=== PATIENT | male | born 1975 | race Caucasian/White ===

== ENCOUNTER 2018-12-31 21:49 | Emergency (ER) | payer MEDICAID, MEDICARE ==
[2018-12-31] MEDS: DIPHTH/TET/ACEL PERTUSS (ADULT) 0.5 ML VIAL IM* (23:00)
== END 2019-01-01 01:12 | disposition home or self-care (01) ==
LOC: E/R 01-01 01:12
DX: S50.01XA Contusion of right elbow, initial encounter (principal); V13.4XXA Pedal cycle driver injured in collision with car, pick-up truck or van in traffic accident, initial encounter; Z23 Encounter for immunization; Z87.891 Personal history of nicotine dependence
CPT/HCPCS: 90471; 90715; 99283-25

== ENCOUNTER 2019-01-01 19:00 | Inpatient (IN) | payer MEDICARE, MEDICAID, OTHER ==
[~2019-01-01 19:00] MED LIST: FLUMAZENIL 0.5 MG INJ
[2019-01-01] MEDS ORDERED: VERAPAMIL 5 MG INJ (19:01)
[2019-01-01] MEDS: ETOMIDATE 20 MG INJ IV (19:06)
[2019-01-01] MEDS: ROCURONIUM 50 MG INJ IV (19:06)
[2019-01-01 19:35] LABS: ADD MAN DIFF? NO
[2019-01-01 19:36] LABS: BASOPHIL # 0.1 10^3/ul (0.0-0.1); BASOPHILS % 0.4 % (0.0-2.0); EOSINOPHILS # 0.1 10^3/ul (0.0-0.5); EOSINOPHILS % 0.8 % (0.0-7.0); HEMATOCRIT 41.5 % (42.0-52.0); HEMOGLOBIN 13.8 g/dl (14.0-18.0); LYMPHOCYTES # 2.9 10^3/ul (0.8-2.9); LYMPHOCYTES % 18.8 % (15.0-51.0); MEAN CORPUSCULAR HEMOGLOBIN 27.5 pg (29.0-33.0); MEAN CORPUSCULAR HGB CONC 33.3 g/dl (32.0-37.0); MEAN CORPUSCULAR VOLUME 82.8 fl (82.0-101.0); MEAN PLATELET VOLUME 10.3 fl (7.4-10.4); MONOCYTE # 1.1 10^3/ul (0.3-0.9); MONOCYTES % 6.9 % (0.0-11.0); NEUTROPHIL # 11.1 10^3/ul (1.6-7.5); NEUTROPHILS % 72.6 % (39.0-77.0); PLATELET COUNT 404 10^3/UL (140-415); RED BLOOD COUNT 5.01 10^6/ul (4.70-6.10); RED CELL DISTRIBUTION WIDTH 13.2 % (11.5-14.5)
[2019-01-01 19:36] LABS: WHITE BLOOD COUNT 15.3 10^3/ul (4.8-10.8)
[2019-01-01 19:44] LABS: ALANINE AMINOTRANSFERASE 62 IU/L (13-69); ALBUMIN 4.2 g/dl (3.3-4.9); ALKALINE PHOSPHATASE 69 IU/L (42-121); ANION GAP 12 (5-13); ASPARTATE AMINO TRANSFERASE 83 IU/L (15-46); BILIRUBIN,INDIRECT 1.1 mg/dl (0-1.1); BILIRUBIN,TOTAL 1.1 mg/dl (0.2-1.3); BLOOD UREA NITROGEN 33 mg/dl (7-20); CARBON DIOXIDE 27 mmol/L (21-31); CHLORIDE 100 mmol/L (97-110); CREATININE 1.76 mg/dl (0.61-1.24); Estimated GFR 42 mL/min (>60); GLUCOSE 128 mg/dl (70-220); LIPASE 250 U/L (23-300); MAGNESIUM 1.8 mg/dl (1.7-2.5); PHOSPHORUS 2.4 mg/dl (2.5-4.9); POTASSIUM 3.6 mmol/L (3.5-5.1); SODIUM 139 mmol/L (135-144); TOTAL PROTEIN 7.7 g/dl (6.1-8.1)
[2019-01-01 19:47] LABS: ETHANOL < 10.0 mg/dl (0-0)
[2019-01-01] MEDS: ACETAMINOPHEN 650 MG SUPP PR (19:51)
[2019-01-01] MEDS: SODIUM CHLORIDE 0.9% 1L BAG IV* (19:51)
[2019-01-01 19:54] LABS: TROPONIN-I 0.015 ng/ml (0.000-0.120)
[2019-01-01 19:55] LABS: INR 1.03; PROTIME 13.6 Sec (11.9-14.9); PT RATIO 1.1
[2019-01-01 19:56] LABS: PARTIAL THROMBOPLASTIN TIME 26.9 Sec (23.0-35.0)
[2019-01-01] MEDS: DANTROLENE 20 MG INJ IV (20:29)
[2019-01-01] MEDS: MIDAZOLAM 1 MG/ML 2 ML INJ IV ×2 (20:29→20:38)
[2019-01-01] MEDS: FENTAnyl 50 MCG/ML VIAL IV ×2 (20:29→20:38)
[2019-01-01] MEDS: CEFTRIAXONE 2 GM/50 ML (PMX) 50 ML IVPB (20:29)
[2019-01-01] MEDS: MIDAZOLAM (DRIP) 50 mg/50 mL 50 ML IV (20:31)
[2019-01-01] MEDS: FENTAnyl (DRIP) 1000 mcg/100mL 100 ML IV (20:32)
[2019-01-01] MEDS: DANTROLENE SODIUM 250 MG VIAL IV (20:34)
[2019-01-01] MEDS ORDERED: ETOMIDATE 20 MG INJ (21:00)
[2019-01-01 21:06] LABS: ADD UMIC YES; UR ASCORBIC ACID NEGATIVE (NEGATIVE); UR BACTERIA FEW /HPF (NONE SEEN); UR BILIRUBIN (Dip) NEGATIVE (NEGATIVE); UR BLOOD (Dip) 2+ mg/dL (NEGATIVE); UR CLARITY SLIGHTLY CLOUDY (CLEAR); UR COLOR YELLOW (YELLOW); UR GLUCOSE (Dip) NEGATIVE (NEGATIVE); UR KETONES (Dip) NEGATIVE (NEGATIVE); UR LEUKOCYTE ESTERASE (Dip) NEGATIVE Leu/ul (NEGATIVE); UR MUCUS FEW /HPF (NONE SEEN); UR NITRITE (Dip) NEGATIVE (NEGATIVE); UR RBC 2 /HPF (0-5); UR SPECIFIC GRAVITY (Dip) 1.023 (1.003-1.030); UR TOTAL PROTEIN (Dip) 2+ mg/dl (NEGATIVE); UR UROBILINOGEN (Dip) NEGATIVE (NEGATIVE); UR WBC 3 /HPF (0-5)
[2019-01-01 21:17] LABS: BARBITURATES Negative (NEGATIVE); CANNABINOIDS Positive (NEGATIVE); COCAINE Negative (NEGATIVE); OPIATES Negative (NEGATIVE)
[2019-01-01 21:18] LABS: BENZODIAZEPINES Positive (NEGATIVE)
[2019-01-01] MEDS: CLINDAMYCIN 900 MG/D5W (PMX) 50 ML IVPB (21:18)
[2019-01-01] MEDS: VANCOMYCIN 1 GM (PMX) 250 ML IVPB (21:18)
[2019-01-01 21:19] LABS: AMPHETAMINE/METHAMPHETAMINE POSITIVE (NEGATIVE)
[2019-01-01 21:32] LABS: CSF RBC 0 /uL (0-0); CSF WBC 5 /cmm (0-10)
[2019-01-01 21:33] LABS: GLUCOSE,CSF 105 mg/dl (50-80)
[2019-01-01 21:33] LABS: TOTAL PROTEIN,CSF 37 mg/dl (12-60)
[2019-01-01 21:34] LABS: CSF RBC 0 /uL (0-0); CSF WBC 3 /cmm (0-10)
[2019-01-01 22:00] LABS: CSF COLOR COLORLESS
[2019-01-01 22:00] LABS: CSF CLARITY CLEAR; CSF#TUBE COUNT TUBE#1; CSF#TUBES REC'D 4
[2019-01-01] MEDS ORDERED: VANCOMYCIN IV PER PHARMACY XX (22:00)
[2019-01-01 22:05] LABS: CSF CLARITY CLEAR; CSF COLOR COLORLESS; CSF#TUBE COUNT TUBE#4; CSF#TUBES REC'D 4
[2019-01-01 22:08] LABS: AADO2 Arterial 572.7 mmHg (7.0-24.0); Allen Test ACCEPTAB; Arterial Base Excess -2.8 mmol/L (-3.0-3); Arterial Blood Gas Oxygen Sat 93.1 mmHG (95.0-98.0); Arterial COHb 0.2 % (0.0-3.0); Arterial Fraction of Oxyhgb 92.7 % (93.0-99.0); Arterial HCO3 25.5 mmol/L (22.0-26.0); Arterial MetHb 0.2 % (0.0-1.5); Arterial pCO2 59.7 mmhg (35-45); MODE VENT - AC; Site Right Radial
[2019-01-01 22:14] LABS: LACTIC ACID 1.4 mmol/L (0.5-2.0)
[2019-01-01] MEDS: HEPARIN 5,000 UNIT/1 ML VIAL SC (22:15)
[2019-01-01] MEDS: SOD CHLORIDE 0.9% 1,000 ML IV (22:15)
[2019-01-01 22:16] LABS: CREATINE KINASE 1189 IU/L (23-200)
[2019-01-01] MEDS: BROMOCRIPTINE 2.5 MG TAB NGT (22:31)
[2019-01-01 22:47] LABS: LITHIUM < 0.4 mmol/L (0.6-1.3)
[2019-01-02] MEDS: PIPER-TAZO 3.375 GM IV (PMX) 100 ML IVPB ×4 (00:01→20:32)
[2019-01-02 00:22] LABS: CK-MB 2.84 ng/ml (0.0-2.4)
[2019-01-02] MEDS ORDERED: DANTROLENE 20 MG INJ IV (00:30)
[2019-01-02 00:41] LABS: CK INDEX 0.3; CREATINE KINASE 1069 IU/L (23-200)
[2019-01-02] MEDS: VANCOMYCIN 1 GM in 250 ML IVPB (01:44)
[2019-01-02] MEDS: ACETAMINOPHEN 650MG/20.3ML CUP NGT ×2 (01:48→13:25)
[2019-01-02] MEDS: DANTROLENE SODIUM 250 MG VIAL IV ×2 (02:37→07:50)
[2019-01-02] MEDS: MIDAZOLAM (DRIP) 50 mg/50 mL 50 ML IV ×2 (03:50→09:03)
[2019-01-02] MEDS: HEPARIN 5,000 UNIT/1 ML VIAL SC ×3 (05:23→21:46)
[2019-01-02 05:27] LABS: ADD MAN DIFF? NO
[2019-01-02 05:46] LABS: HEMOGLOBIN A1C 5.5 % (0-5.9)
[2019-01-02 05:54] LABS: CREATINE KINASE 1024 IU/L (23-200)
[2019-01-02 05:56] LABS: ALANINE AMINOTRANSFERASE 60 IU/L (13-69); ALBUMIN 3.3 g/dl (3.3-4.9); ALBUMIN/GLOBULIN RATIO 1.06; ALKALINE PHOSPHATASE 52 IU/L (42-121); ANION GAP 9 (5-13); ASPARTATE AMINO TRANSFERASE 65 IU/L (15-46); BILIRUBIN,INDIRECT 0.6 mg/dl (0-1.1); BILIRUBIN,TOTAL 0.6 mg/dl (0.2-1.3); BLOOD UREA NITROGEN 30 mg/dl (7-20); CALCIUM 7.6 mg/dl (8.4-10.2); CARBON DIOXIDE 24 mmol/L (21-31); CHLORIDE 107 mmol/L (97-110); CHOL/HDL RATIO 2.4 RATIO; CHOLESTEROL 56 mg/dl (100-200); CREATININE 1.35 mg/dl (0.61-1.24); Estimated GFR 57 mL/min (>60); GLUCOSE 109 mg/dl (70-220); HDL CHOLESTEROL 23 mg/dl (27-67); LDL CHOLESTEROL,CALCULATED 24 mg/dl; POTASSIUM 3.7 mmol/L (3.5-5.1); SODIUM 140 mmol/L (135-144); TOTAL PROTEIN 6.4 g/dl (6.1-8.1); TRIGLYCERIDES 43 mg/dl (0-149)
[2019-01-02 06:01] LABS: BASOPHILS % 0.1 % (0.0-2.0); EOSINOPHILS % 0.1 % (0.0-7.0); HEMATOCRIT 41.2 % (42.0-52.0); HEMOGLOBIN 13.1 g/dl (14.0-18.0); LYMPHOCYTES # 0.9 10^3/ul (0.8-2.9); LYMPHOCYTES % 6.3 % (15.0-51.0); MEAN CORPUSCULAR HEMOGLOBIN 27.5 pg (29.0-33.0); MEAN CORPUSCULAR HGB CONC 31.8 g/dl (32.0-37.0); MEAN CORPUSCULAR VOLUME 86.4 fl (82.0-101.0); MEAN PLATELET VOLUME 10.3 fl (7.4-10.4); MONOCYTE # 0.8 10^3/ul (0.3-0.9); MONOCYTES % 5.8 % (0.0-11.0); NEUTROPHIL # 11.7 10^3/ul (1.6-7.5); PLATELET COUNT 197 10^3/UL (140-415); RED BLOOD COUNT 4.77 10^6/ul (4.70-6.10); RED CELL DISTRIBUTION WIDTH 13.6 % (11.5-14.5)
[2019-01-02 06:01] LABS: WHITE BLOOD COUNT 13.5 10^3/ul (4.8-10.8)
[2019-01-02 06:04] LABS: CK INDEX 0.2; CK-MB 1.97 ng/ml (0.0-2.4); TROPONIN-I 0.065 ng/ml (0.000-0.120)
[2019-01-02] MEDS: BROMOCRIPTINE 2.5 MG TAB PO ×3 (06:21→19:02)
[2019-01-02 06:24] LABS: THYROID STIMULATING HORMONE 0.788 MIU/L (0.465-4.680)
[2019-01-02] MEDS: SOD CHLORIDE 0.9% 1,000 ML IV ×2 (07:40→18:56)
[2019-01-02 08:42] LABS: AADO2 Arterial 550.1 mmHg (7.0-24.0); Allen Test ACCEPTAB; Arterial Blood Gas Oxygen Sat 98.1 mmHG (95.0-98.0); Arterial COHb 0.3 % (0.0-3.0); Arterial Fraction of Oxyhgb 97.5 % (93.0-99.0); Arterial HCO3 21.1 mmol/L (22.0-26.0); Arterial MetHb 0.3 % (0.0-1.5); Arterial pCO2 38.7 mmhg (35-45); MODE VENT - AC; Site Right Radial
[2019-01-02 11:26] LABS: CREATINE KINASE 879 IU/L (23-200)
[2019-01-02 11:39] LABS: CK INDEX 0.2; CK-MB 1.95 ng/ml (0.0-2.4)
[2019-01-02 11:53] LABS: TROPONIN-I 0.126 ng/ml (0.000-0.120)
[2019-01-02] MEDS: FENTAnyl (DRIP) 1000 mcg/100mL 100 ML IV (13:12)
[2019-01-02 14:25] LABS: HIV 1&2 ANTIBODY NEGATIVE (NEGATIVE)
[2019-01-02 14:27] LABS: PROCALCITONIN 18.13 ng/mL (0.00-0.10)
[2019-01-02] MEDS ORDERED: NORepinephrine 8MG/250 ML (PMX 250 ML (15:34)
[2019-01-02] MEDS ORDERED: NORepinephrine 8MG/250 ML (PMX 250 ML IV (19:00)
[2019-01-02] MEDS: VANCOMYCIN HCL 1.25 GM in SOD CHLORIDE 0.9% 250 ML IVPB (19:00)
[2019-01-02 21:33] LABS: CREATINE KINASE 676 IU/L (23-200)
[2019-01-02 21:43] LABS: CK INDEX 1.4
[2019-01-02 21:44] LABS: CK-MB 9.54 ng/ml (0.0-2.4)
[2019-01-03] MEDS ORDERED: ASPIRIN 600 MG SUPP PR
[2019-01-03] MEDS: PIPER-TAZO 3.375 GM IV (PMX) 100 ML IVPB ×4 (00:25→20:42)
[2019-01-03] MEDS: BROMOCRIPTINE 2.5 MG TAB PO (00:25)
[2019-01-03] MEDS: HEPARIN 1000 UNITS/ML 10 ML INJ IV (00:25)
[2019-01-03] MEDS: HEPARIN 25000 UNITS/250 ML 250 ML IV (00:32)
[2019-01-03] MEDS: ASPIRIN 325 MG TAB NGT (00:57)
[2019-01-03] MEDS: ALBUMIN HUMAN 25% 100 ML IV ×2 (00:59→01:28)
[2019-01-03 01:12] LABS: ADD MAN DIFF? NO
[2019-01-03 01:17] LABS: ABNORMAL IP MESSAGE 1; BASOPHILS % 0.2 % (0.0-2.0); HEMATOCRIT 36.8 % (42.0-52.0); HEMOGLOBIN 11.3 g/dl (14.0-18.0); LYMPHOCYTES % 8.4 % (15.0-51.0); MEAN CORPUSCULAR HEMOGLOBIN 27.5 pg (29.0-33.0); MEAN CORPUSCULAR HGB CONC 30.7 g/dl (32.0-37.0); MEAN CORPUSCULAR VOLUME 89.5 fl (82.0-101.0); MEAN PLATELET VOLUME 11.8 fl (7.4-10.4); MONOCYTE # 0.5 10^3/ul (0.3-0.9); MONOCYTES % 3.8 % (0.0-11.0); NEUTROPHIL # 10.7 10^3/ul (1.6-7.5); NEUTROPHILS % 87.3 % (39.0-77.0); PLATELET COUNT 89 10^3/UL (140-415); POSITIVE DIFF @See below; RED BLOOD COUNT 4.11 10^6/ul (4.70-6.10); RED CELL DISTRIBUTION WIDTH 13.8 % (11.5-14.5)
[2019-01-03 01:17] LABS: WHITE BLOOD COUNT 12.2 10^3/ul (4.8-10.8)
[2019-01-03 01:31] LABS: CREATINE KINASE 678 IU/L (23-200)
[2019-01-03 01:35] LABS: INR 1.56; PROTIME 18.8 Sec (11.9-14.9); PT RATIO 1.5
[2019-01-03] MEDS: MIDAZOLAM (DRIP) 50 mg/50 mL 50 ML IV ×4 (01:37→21:18)
[2019-01-03 01:45] LABS: CK INDEX 2.4
[2019-01-03 01:50] LABS: PARTIAL THROMBOPLASTIN TIME 96.6 Sec (23.0-35.0)
[2019-01-03] MEDS: NORepinephrine 8MG/250 ML (PMX 250 ML IV ×2 (02:01→14:00)
[2019-01-03] MEDS: VANCOMYCIN HCL 1.25 GM in SOD CHLORIDE 0.9% 250 ML IVPB ×2 (02:06→16:13)
[2019-01-03] MEDS: SOD CHLORIDE 0.9% 1,000 ML IV ×3 (03:29→23:56)
[2019-01-03] MEDS ORDERED: SOD CHLORIDE 0.9% 1,000 ML IV (03:30)
[2019-01-03] MEDS ORDERED: HEPARIN 1000 UNITS/ML 10 ML INJ IV (05:30)
[2019-01-03 07:49] LABS: AADO2 Arterial 93.1 mmHg (7.0-24.0); Allen Test ACCEPTAB; Arterial Base Excess -3.3 mmol/L (-3.0-3); Arterial Blood Gas Oxygen Sat 95.3 mmHG (95.0-98.0); Arterial COHb 0.3 % (0.0-3.0); Arterial Fraction of Oxyhgb 94.9 % (93.0-99.0); Arterial HCO3 20.7 mmol/L (22.0-26.0); Arterial MetHb 0.1 % (0.0-1.5); Arterial pCO2 34.3 mmhg (35-45); MODE VENT - AC; Site Right Radial; Temperature 37.3 C
[2019-01-03 08:13] LABS: ADD MAN DIFF? NO
[2019-01-03 08:21] LABS: WHITE BLOOD COUNT 14.5 10^3/ul (4.8-10.8)
[2019-01-03 08:21] LABS: BASOPHILS % 0.1 % (0.0-2.0); HEMATOCRIT 34.8 % (42.0-52.0); HEMOGLOBIN 11.2 g/dl (14.0-18.0); LYMPHOCYTES # 1.1 10^3/ul (0.8-2.9); LYMPHOCYTES % 7.9 % (15.0-51.0); MEAN CORPUSCULAR HEMOGLOBIN 27.7 pg (29.0-33.0); MEAN CORPUSCULAR HGB CONC 32.2 g/dl (32.0-37.0); MEAN CORPUSCULAR VOLUME 86.1 fl (82.0-101.0); MEAN PLATELET VOLUME 11.9 fl (7.4-10.4); MONOCYTE # 0.6 10^3/ul (0.3-0.9); MONOCYTES % 3.9 % (0.0-11.0); NEUTROPHIL # 12.7 10^3/ul (1.6-7.5); NEUTROPHILS % 87.8 % (39.0-77.0); PLATELET COUNT 100 10^3/UL (140-415); RED BLOOD COUNT 4.04 10^6/ul (4.70-6.10); RED CELL DISTRIBUTION WIDTH 14.1 % (11.5-14.5)
[2019-01-03 08:35] LABS: ALANINE AMINOTRANSFERASE 89 IU/L (13-69); ALBUMIN 3.1 g/dl (3.3-4.9); ALBUMIN/GLOBULIN RATIO 1.06; ALKALINE PHOSPHATASE 51 IU/L (42-121); ANION GAP 10 (5-13); ASPARTATE AMINO TRANSFERASE 71 IU/L (15-46); BILIRUBIN,INDIRECT 0.7 mg/dl (0-1.1); BLOOD UREA NITROGEN 31 mg/dl (7-20); CALCIUM 7.9 mg/dl (8.4-10.2); CARBON DIOXIDE 21 mmol/L (21-31); CHLORIDE 111 mmol/L (97-110); CREATININE 1.01 mg/dl (0.61-1.24); Estimated GFR > 60 mL/min (>60); GLUCOSE 133 mg/dl (70-220); POTASSIUM 3.8 mmol/L (3.5-5.1); SODIUM 142 mmol/L (135-144)
[2019-01-03 08:38] LABS: PARTIAL THROMBOPLASTIN TIME 39.6 Sec (23.0-35.0)
[2019-01-03] MEDS ORDERED: ASPIRIN 325 MG TAB NGT (09:00)
[2019-01-03 11:47] LABS: PARTIAL THROMBOPLASTIN TIME 126.1 Sec (23.0-35.0)
[2019-01-03] MEDS: LIDOCAINE 1% (MPF) 5 ML VIAL SC (12:25)
[2019-01-03] MEDS ORDERED: POTASSIUM CHLORIDE (SR) 20 MEQ TAB PO (13:26)
[2019-01-03 13:40] LABS: ADD MAN DIFF? NO
[2019-01-03 13:41] LABS: WHITE BLOOD COUNT 14.7 10^3/ul (4.8-10.8)
[2019-01-03 13:41] LABS: ABNORMAL IP MESSAGE 1; BASOPHILS % 0.1 % (0.0-2.0); HEMATOCRIT 34.5 % (42.0-52.0); LYMPHOCYTES # 0.9 10^3/ul (0.8-2.9); LYMPHOCYTES % 5.9 % (15.0-51.0); MEAN CORPUSCULAR HEMOGLOBIN 27.7 pg (29.0-33.0); MEAN CORPUSCULAR HGB CONC 31.9 g/dl (32.0-37.0); MEAN CORPUSCULAR VOLUME 86.9 fl (82.0-101.0); MEAN PLATELET VOLUME 10.9 fl (7.4-10.4); MONOCYTE # 0.7 10^3/ul (0.3-0.9); MONOCYTES % 4.4 % (0.0-11.0); NEUTROPHIL # 13.1 10^3/ul (1.6-7.5); NEUTROPHILS % 89.2 % (39.0-77.0); PLATELET COUNT 94 10^3/UL (140-415); POSITIVE DIFF @See below; RED BLOOD COUNT 3.97 10^6/ul (4.70-6.10); RED CELL DISTRIBUTION WIDTH 14.2 % (11.5-14.5)
[2019-01-03 14:13] LABS: VANCOMYCIN,TROUGH 10.2 ug/ml (10.0-20.0)
[2019-01-03] MEDS: FENTAnyl (DRIP) 1000 mcg/100mL 100 ML IV (16:41)
[2019-01-03 19:17] LABS: PARTIAL THROMBOPLASTIN TIME 31.1 Sec (23.0-35.0)
[2019-01-04] MEDS: PIPER-TAZO 3.375 GM IV (PMX) 100 ML IVPB ×3 (00:40→12:42)
[2019-01-04] MEDS: VANCOMYCIN HCL 1.5 GM in SOD CHLORIDE 0.9% 250 ML IVPB ×2 (01:23→13:56)
[2019-01-04] MEDS: MIDAZOLAM (DRIP) 50 mg/50 mL 50 ML IV ×2 (03:15→21:44)
[2019-01-04 03:17] LABS: TROPONIN-I 0.884 ng/ml (0.000-0.120)
[2019-01-04 05:28] LABS: ADD MAN DIFF? NO
[2019-01-04 05:31] LABS: WHITE BLOOD COUNT 13.4 10^3/ul (4.8-10.8)
[2019-01-04 05:31] LABS: ABNORMAL IP MESSAGE 1; BASOPHILS % 0.1 % (0.0-2.0); EOSINOPHILS % 0.1 % (0.0-7.0); HEMATOCRIT 33.7 % (42.0-52.0); HEMOGLOBIN 10.7 g/dl (14.0-18.0); LYMPHOCYTES # 0.9 10^3/ul (0.8-2.9); LYMPHOCYTES % 6.6 % (15.0-51.0); MEAN CORPUSCULAR HEMOGLOBIN 27.8 pg (29.0-33.0); MEAN CORPUSCULAR HGB CONC 31.8 g/dl (32.0-37.0); MEAN CORPUSCULAR VOLUME 87.5 fl (82.0-101.0); MEAN PLATELET VOLUME 11.6 fl (7.4-10.4); MONOCYTE # 0.6 10^3/ul (0.3-0.9); MONOCYTES % 4.3 % (0.0-11.0); NEUTROPHIL # 11.8 10^3/ul (1.6-7.5); NEUTROPHILS % 88.4 % (39.0-77.0); PLATELET COUNT 93 10^3/UL (140-415); POSITIVE DIFF @See below; RED BLOOD COUNT 3.85 10^6/ul (4.70-6.10); RED CELL DISTRIBUTION WIDTH 14.4 % (11.5-14.5)
[2019-01-04 06:01] LABS: CREATINE KINASE 282 IU/L (23-200)
[2019-01-04 06:04] LABS: ALANINE AMINOTRANSFERASE 103 IU/L (13-69); ALBUMIN 2.8 g/dl (3.3-4.9); ALKALINE PHOSPHATASE 61 IU/L (42-121); ANION GAP 3 (5-13); ASPARTATE AMINO TRANSFERASE 55 IU/L (15-46); BILIRUBIN,INDIRECT 0.6 mg/dl (0-1.1); BILIRUBIN,TOTAL 0.6 mg/dl (0.2-1.3); BLOOD UREA NITROGEN 26 mg/dl (7-20); CALCIUM 7.9 mg/dl (8.4-10.2); CARBON DIOXIDE 26 mmol/L (21-31); CHLORIDE 114 mmol/L (97-110); CREATININE 0.72 mg/dl (0.61-1.24); Estimated GFR > 60 mL/min (>60); GLUCOSE 127 mg/dl (70-220); SODIUM 143 mmol/L (135-144); TOTAL PROTEIN 5.6 g/dl (6.1-8.1)
[2019-01-04 06:11] LABS: CK INDEX 2.1
[2019-01-04] MEDS: FENTAnyl (DRIP) 1000 mcg/100mL 100 ML IV (06:14)
[2019-01-04 06:40] LABS: CK-MB 5.79 ng/ml (0.0-2.4); TROPONIN-I 0.741 ng/ml (0.000-0.120)
[2019-01-04 07:36] LABS: AADO2 Arterial 99.7 mmHg (7.0-24.0); Allen Test ACCEPTAB; Arterial Base Excess -1.1 mmol/L (-3.0-3); Arterial Blood Gas Oxygen Sat 93.2 mmHG (95.0-98.0); Arterial COHb 0.3 % (0.0-3.0); Arterial Fraction of Oxyhgb 92.9 % (93.0-99.0); Arterial HCO3 23.1 mmol/L (22.0-26.0); Arterial MetHb 0 % (0.0-1.5); Arterial pCO2 37.7 mmhg (35-45); MODE VENT - AC; Site Right Radial; Temperature 37.6 C
[2019-01-04] MEDS: MUPIROCIN 2% 22 GM OINT TOP ×2 (08:31→20:31)
[2019-01-04] MEDS: ASPIRIN 81 MG TAB NGT (08:31)
[2019-01-04] MEDS: ACETAMINOPHEN 650MG/20.3ML CUP NGT ×2 (08:31→21:54)
[2019-01-04] MEDS: SOD CHLORIDE 0.9% 1,000 ML IV (09:04)
[2019-01-04 10:11] LABS: PHOSPHORUS 1.8 mg/dl (2.5-4.9)
[2019-01-04 10:11] LABS: MAGNESIUM 2.8 mg/dl (1.7-2.5)
[2019-01-04] MEDS: CEFTRIAXONE 1 GM/50 ML (PMX) 50 ML IVPB (14:17)
[2019-01-04] MEDS: metroNIDAZOLE 500 MG/NS (PMX) 100 ML IVPB ×2 (14:25→21:54)
[2019-01-05] MEDS: FENTAnyl (DRIP) 1000 mcg/100mL 100 ML IV ×3 (00:58→23:22)
[2019-01-05] MEDS: VANCOMYCIN HCL 1.5 GM in SOD CHLORIDE 0.9% 250 ML IVPB ×2 (01:11→13:24)
[2019-01-05 05:19] LABS: WHITE BLOOD COUNT 12.3 10^3/ul (4.8-10.8)
[2019-01-05 05:19] LABS: ADD MAN DIFF? NO; BASOPHILS % 0.2 % (0.0-2.0); EOSINOPHILS # 0.1 10^3/ul (0.0-0.5); EOSINOPHILS % 0.5 % (0.0-7.0); HEMATOCRIT 33.6 % (42.0-52.0); HEMOGLOBIN 10.5 g/dl (14.0-18.0); LYMPHOCYTES % 8.3 % (15.0-51.0); MEAN CORPUSCULAR HEMOGLOBIN 27.5 pg (29.0-33.0); MEAN CORPUSCULAR HGB CONC 31.3 g/dl (32.0-37.0); MEAN PLATELET VOLUME 12.3 fl (7.4-10.4); MONOCYTE # 0.8 10^3/ul (0.3-0.9); MONOCYTES % 6.3 % (0.0-11.0); NEUTROPHIL # 10.3 10^3/ul (1.6-7.5); PLATELET COUNT 138 10^3/UL (140-415); RED BLOOD COUNT 3.82 10^6/ul (4.70-6.10); RED CELL DISTRIBUTION WIDTH 14.6 % (11.5-14.5)
[2019-01-05] MEDS: metroNIDAZOLE 500 MG/NS (PMX) 100 ML IVPB ×2 (05:38→21:30)
[2019-01-05 05:58] LABS: MAGNESIUM 2.4 mg/dl (1.7-2.5)
[2019-01-05 05:58] LABS: PHOSPHORUS 2.7 mg/dl (2.5-4.9)
[2019-01-05 06:08] LABS: ALANINE AMINOTRANSFERASE 125 IU/L (13-69); ALBUMIN 2.8 g/dl (3.3-4.9); ALBUMIN/GLOBULIN RATIO 0.87; ALKALINE PHOSPHATASE 67 IU/L (42-121); ANION GAP 4 (5-13); ASPARTATE AMINO TRANSFERASE 52 IU/L (15-46); BILIRUBIN,INDIRECT 0.5 mg/dl (0-1.1); BILIRUBIN,TOTAL 0.5 mg/dl (0.2-1.3); BLOOD UREA NITROGEN 18 mg/dl (7-20); CALCIUM 7.9 mg/dl (8.4-10.2); CARBON DIOXIDE 28 mmol/L (21-31); CHLORIDE 115 mmol/L (97-110); Estimated GFR > 60 mL/min (>60); GLUCOSE 102 mg/dl (70-220); POTASSIUM 4.1 mmol/L (3.5-5.1); SODIUM 147 mmol/L (135-144)
[2019-01-05] MEDS: ASPIRIN 81 MG TAB NGT (09:09)
[2019-01-05] MEDS: MUPIROCIN 2% 22 GM OINT TOP ×2 (09:09→20:57)
[2019-01-05] MEDS: PROPOFOL 100 ML IV ×3 (09:56→21:30)
[2019-01-05] MEDS: MEROPENEM 1 GM/50ML(PMX) 50 ML IVPB ×2 (10:00→13:24)
[2019-01-05] MEDS: ACETAMINOPHEN 650MG/20.3ML CUP NGT ×2 (11:11→17:24)
[2019-01-05 12:49] LABS: VANCOMYCIN,TROUGH 6.5 ug/ml (10.0-20.0)
[2019-01-05] MEDS ORDERED: CEFTRIAXONE 1 GM/50 ML (PMX) 50 ML IVPB (14:00)
[2019-01-05] MEDS: CEFEPIME 2GM/50 ML (PMX) 50 ML IVPB (20:57)
[2019-01-05] MEDS: VANCOMYCIN HCL 1.25 GM in SOD CHLORIDE 0.9% 250 ML IVPB (21:30)
[2019-01-06] MEDS: ACETAMINOPHEN 650MG/20.3ML CUP NGT ×5 (01:18→23:55)
[2019-01-06] MEDS: PROPOFOL 100 ML IV ×3 (02:21→11:01)
[2019-01-06 05:09] LABS: ADD MAN DIFF? NO
[2019-01-06 05:16] LABS: BASOPHILS % 0.3 % (0.0-2.0); EOSINOPHILS # 0.3 10^3/ul (0.0-0.5); EOSINOPHILS % 1.8 % (0.0-7.0); HEMATOCRIT 38.3 % (42.0-52.0); LYMPHOCYTES % 7.2 % (15.0-51.0); MEAN CORPUSCULAR HEMOGLOBIN 27.6 pg (29.0-33.0); MEAN CORPUSCULAR HGB CONC 31.3 g/dl (32.0-37.0); MEAN PLATELET VOLUME 11.8 fl (7.4-10.4); MONOCYTE # 1.1 10^3/ul (0.3-0.9); MONOCYTES % 7.9 % (0.0-11.0); NEUTROPHIL # 11.4 10^3/ul (1.6-7.5); PLATELET COUNT 204 10^3/UL (140-415); RED BLOOD COUNT 4.35 10^6/ul (4.70-6.10); RED CELL DISTRIBUTION WIDTH 14.4 % (11.5-14.5)
[2019-01-06 05:16] LABS: WHITE BLOOD COUNT 13.9 10^3/ul (4.8-10.8)
[2019-01-06 05:36] LABS: PHOSPHORUS 3.9 mg/dl (2.5-4.9)
[2019-01-06 05:36] LABS: MAGNESIUM 2.1 mg/dl (1.7-2.5)
[2019-01-06] MEDS: VANCOMYCIN HCL 1.25 GM in SOD CHLORIDE 0.9% 250 ML IVPB ×2 (05:37→16:58)
[2019-01-06] MEDS: metroNIDAZOLE 500 MG/NS (PMX) 100 ML IVPB ×3 (05:37→22:08)
[2019-01-06 05:39] LABS: ANION GAP 3 (5-13); BLOOD UREA NITROGEN 16 mg/dl (7-20); CALCIUM 8.5 mg/dl (8.4-10.2); CARBON DIOXIDE 31 mmol/L (21-31); CHLORIDE 112 mmol/L (97-110); CREATININE 0.43 mg/dl (0.61-1.24); Estimated GFR > 60 mL/min (>60); GLUCOSE 104 mg/dl (70-220); SODIUM 146 mmol/L (135-144)
[2019-01-06] MEDS: FENTAnyl (DRIP) 1000 mcg/100mL 100 ML IV (09:12)
[2019-01-06] MEDS: CEFEPIME 2GM/50 ML (PMX) 50 ML IVPB ×2 (09:22→20:59)
[2019-01-06] MEDS: MUPIROCIN 2% 22 GM OINT TOP ×2 (09:23→21:03)
[2019-01-06] MEDS: METOPROLOL 25 MG TAB PO ×2 (09:23→21:01)
[2019-01-06 14:09] LABS: AADO2 Arterial 91.9 mmHg (7.0-24.0); Allen Test ACCEPTAB; Arterial Base Excess 2.6 mmol/L (-3.0-3); Arterial Blood Gas Oxygen Sat 89.8 mmHG (95.0-98.0); Arterial COHb 0.2 % (0.0-3.0); Arterial Fraction of Oxyhgb 89.6 % (93.0-99.0); Arterial HCO3 29.1 mmol/L (22.0-26.0); Arterial MetHb 0 % (0.0-1.5); Arterial pCO2 53.2 mmhg (35-45); Blood Gas PS 10; MODE VENT - CPAP; Site Right Radial
[2019-01-06] MEDS: ASPIRIN 81 MG TAB NGT (14:51)
[2019-01-06 15:40] LABS: VANCOMYCIN,TROUGH 9.8 ug/ml (10.0-20.0)
[2019-01-06] MEDS: HALOPERIDOL 5 MG INJ IV (16:54)
[2019-01-06] MEDS ORDERED: hydrALAzine 20 MG INJ IV (19:30)
[2019-01-06 21:56] LABS: Allen Test ACCEPTAB; Arterial Base Excess 4.4 mmol/L (-3.0-3); Arterial Blood Gas Oxygen Sat 94.5 mmHG (95.0-98.0); Arterial COHb 0.2 % (0.0-3.0); Arterial Fraction of Oxyhgb 94.1 % (93.0-99.0); Arterial HCO3 29.1 mmol/L (22.0-26.0); Arterial MetHb 0.2 % (0.0-1.5); Arterial pCO2 43.6 mmhg (35-45); MODE NASAL CANNULA; Site Right Radial
[2019-01-07] MEDS: VANCOMYCIN HCL 1.5 GM in SOD CHLORIDE 0.9% 250 ML IVPB ×3 (00:55→17:08)
[2019-01-07] MEDS: metroNIDAZOLE 500 MG/NS (PMX) 100 ML IVPB ×3 (05:45→21:12)
[2019-01-07] MEDS: ACETAMINOPHEN 650MG/20.3ML CUP NGT ×5 (05:50→18:00)
[2019-01-07] MEDS: CEFEPIME 2GM/50 ML (PMX) 50 ML IVPB ×2 (11:30→21:00)
[2019-01-07] MEDS: METOPROLOL 25 MG TAB PO (11:31)
[2019-01-07] MEDS: ASPIRIN 81 MG TAB NGT (11:31)
[2019-01-07] MEDS: MUPIROCIN 2% 22 GM OINT TOP ×2 (11:32→21:14)
[2019-01-07] MEDS: FUROSEMIDE 20 MG INJ IV ×2 (11:42→17:08)
[2019-01-07] MEDS: METOPROLOL (XL) 25 MG TAB PO (21:12)
[2019-01-07] MEDS: HYDROmorphONE 1 MG/ML SYG IV (23:17)
[2019-01-08 01:30] LABS: VANCOMYCIN,TROUGH 9.5 ug/ml (10.0-20.0)
[2019-01-08] MEDS: VANCOMYCIN HCL 1.5 GM in SOD CHLORIDE 0.9% 250 ML IVPB (02:09)
[2019-01-08] MEDS: metroNIDAZOLE 500 MG/NS (PMX) 100 ML IVPB ×3 (06:14→22:30)
[2019-01-08] MEDS: FUROSEMIDE 20 MG INJ IV ×2 (06:14→18:23)
[2019-01-08] MEDS: ACETAMINOPHEN 650MG/20.3ML CUP NGT ×3 (06:17→18:23)
[2019-01-08] MEDS: ASPIRIN 81 MG TAB NGT (08:29)
[2019-01-08] MEDS: VANCOMYCIN HCL 1.75 GM in SOD CHLORIDE 0.9% 500 ML IVPB ×2 (08:29→17:07)
[2019-01-08] MEDS: CEFEPIME 2GM/50 ML (PMX) 50 ML IVPB ×2 (08:29→20:46)
[2019-01-08] MEDS: METOPROLOL (XL) 25 MG TAB PO ×2 (08:30→20:48)
[2019-01-08] MEDS: MUPIROCIN 2% 22 GM OINT TOP ×2 (08:30→20:49)
[2019-01-08 15:35] LABS: ADD MAN DIFF? NO
[2019-01-08 15:37] LABS: BASOPHILS % 0.3 % (0.0-2.0); EOSINOPHILS # 0.2 10^3/ul (0.0-0.5); EOSINOPHILS % 2.1 % (0.0-7.0); HEMATOCRIT 35.6 % (42.0-52.0); HEMOGLOBIN 11.7 g/dl (14.0-18.0); LYMPHOCYTES # 0.9 10^3/ul (0.8-2.9); LYMPHOCYTES % 9.9 % (15.0-51.0); MEAN CORPUSCULAR HEMOGLOBIN 27.3 pg (29.0-33.0); MEAN CORPUSCULAR HGB CONC 32.9 g/dl (32.0-37.0); MEAN PLATELET VOLUME 10.4 fl (7.4-10.4); MONOCYTE # 0.8 10^3/ul (0.3-0.9); MONOCYTES % 8.8 % (0.0-11.0); NEUTROPHIL # 7.2 10^3/ul (1.6-7.5); PLATELET COUNT 359 10^3/UL (140-415); RED BLOOD COUNT 4.29 10^6/ul (4.70-6.10); RED CELL DISTRIBUTION WIDTH 13.2 % (11.5-14.5)
[2019-01-08 15:37] LABS: WHITE BLOOD COUNT 9.5 10^3/ul (4.8-10.8)
[2019-01-08 16:38] LABS: ANION GAP 5 (5-13); BLOOD UREA NITROGEN 17 mg/dl (7-20); CALCIUM 8.5 mg/dl (8.4-10.2); CARBON DIOXIDE 33 mmol/L (21-31); CHLORIDE 100 mmol/L (97-110); CREATININE 0.61 mg/dl (0.61-1.24); Estimated GFR > 60 mL/min (>60); GLUCOSE 127 mg/dl (70-220); MAGNESIUM 1.9 mg/dl (1.7-2.5); PHOSPHORUS 3.1 mg/dl (2.5-4.9); POTASSIUM 3.3 mmol/L (3.5-5.1); SODIUM 138 mmol/L (135-144)
[2019-01-08] MEDS: HYDROmorphONE 1 MG/ML SYG IV (20:49)
[2019-01-08] MEDS: ALBUTEROL/IPRATROPIUM (NEB) 3 ML AMP HHN (21:28)
[2019-01-08] MEDS: ZOLPIDEM 5 MG TAB PO (22:30)
[2019-01-09] MEDS: ACETAMINOPHEN 650MG/20.3ML CUP NGT ×5 (00:39→16:40)
[2019-01-09] MEDS: VANCOMYCIN HCL 1.75 GM in SOD CHLORIDE 0.9% 500 ML IVPB ×3 (00:40→16:05)
[2019-01-09] MEDS: metroNIDAZOLE 500 MG/NS (PMX) 100 ML IVPB ×3 (06:14→21:46)
[2019-01-09] MEDS: FUROSEMIDE 20 MG INJ IV ×2 (06:15→17:12)
[2019-01-09] MEDS: HYDROmorphONE 1 MG/ML SYG IV ×2 (06:30→20:11)
[2019-01-09 08:42] LABS: VANCOMYCIN,TROUGH 15.2 ug/ml (10.0-20.0)
[2019-01-09 08:52] LABS: PROCALCITONIN 0.17 ng/mL (0.00-0.10)
[2019-01-09] MEDS: CEFEPIME 2GM/50 ML (PMX) 50 ML IVPB ×2 (08:52→20:10)
[2019-01-09] MEDS: ASPIRIN 81 MG TAB NGT (08:52)
[2019-01-09] MEDS: METOPROLOL (XL) 25 MG TAB PO ×2 (08:53→20:10)
[2019-01-09] MEDS: POTASSIUM CHLORIDE (SR) 20 MEQ TAB PO (10:34)
[2019-01-09] MEDS: GUAIFENESIN/DM 5ML CUP PO (21:46)
[2019-01-10] MEDS: VANCOMYCIN HCL 1.75 GM in SOD CHLORIDE 0.9% 500 ML IVPB ×2 (00:37→08:29)
[2019-01-10] MEDS: HYDROmorphONE 1 MG/ML SYG IV ×2 (00:45→06:47)
[2019-01-10] MEDS: metroNIDAZOLE 500 MG/NS (PMX) 100 ML IVPB ×2 (05:51→14:37)
[2019-01-10] MEDS: ACETAMINOPHEN 650MG/20.3ML CUP NGT ×3 (05:52→11:39)
[2019-01-10] MEDS: FUROSEMIDE 20 MG INJ IV (05:52)
[2019-01-10] MEDS: CEFEPIME 2GM/50 ML (PMX) 50 ML IVPB (08:29)
[2019-01-10] MEDS: ASPIRIN 81 MG TAB NGT (08:30)
[2019-01-10] MEDS: METOPROLOL (XL) 25 MG TAB PO (08:30)
[2019-01-10 08:31] LABS: CREATININE 0.57 mg/dl (0.61-1.24)
[2019-01-10 08:31] LABS: BLOOD UREA NITROGEN 11 mg/dl (7-20)
[2019-01-10] MEDS ORDERED: HYDROmorphONE 0.5 MG/0.5 ML SYG IV (09:00)
== END 2019-01-10 16:00 | disposition home or self-care (01) | DRG 870 ==
LOC: E/R 19:00 → 6WM 01-07 14:25 → ICU 21:15
PROC: 0BH17EZ Insertion of Endotracheal Airway into Trachea, Via Natural or Artificial Opening (ICD-10-PCS; principal; 2019-01-01)
PROC: 5A1955Z Respiratory Ventilation, Greater than 96 Consecutive Hours (ICD-10-PCS; 2019-01-01)
PROC: 009U3ZX Drainage of Spinal Canal, Percutaneous Approach, Diagnostic (ICD-10-PCS; 2019-01-01)
PROC: 02H633Z Insertion of Infusion Device into Right Atrium, Percutaneous Approach (ICD-10-PCS; 2019-01-03)
DX: A41.9 Sepsis, unspecified organism (principal); J69.0 Pneumonitis due to inhalation of food and vomit; J96.01 Acute respiratory failure with hypoxia; J96.02 Acute respiratory failure with hypercapnia; G21.0 Malignant neuroleptic syndrome; R65.21 Severe sepsis with septic shock; I21.A1 Myocardial infarction type 2; G92 Toxic encephalopathy; N17.9 Acute kidney failure, unspecified; M62.82 Rhabdomyolysis; E87.0 Hyperosmolality and hypernatremia; D69.6 Thrombocytopenia, unspecified; E66.01 Morbid (severe) obesity due to excess calories; F31.9 Bipolar disorder, unspecified; I11.0 Hypertensive heart disease with heart failure; I50.9 Heart failure, unspecified; J06.9 Acute upper respiratory infection, unspecified; B96.5 Pseudomonas (aeruginosa) (mallei) (pseudomallei) as the cause of diseases classified elsewhere; B95.62 Methicillin resistant Staphylococcus aureus infection as the cause of diseases classified elsewhere; T43.621A Poisoning by amphetamines, accidental (unintentional), initial encounter; T42.4X1A Poisoning by benzodiazepines, accidental (unintentional), initial encounter; T40.7X1A Poisoning by cannabis (derivatives), accidental (unintentional), initial encounter; Z68.35 Body mass index [BMI] 35.0-35.9, adult
CPT/HCPCS: 31500; 36415; 36569; 36600; 70450; 71045; 74176; 76937; 80048; 80053; 80061; 80178; 80202; 80307; 81001; 82306; 82550; 82553; 82565; 82803; 82945; 82962; 83036; 83605; 83690; 83735; 84100; 84145; 84157; 84443; 84484; 84520; 85025; 85610; 85730; 86703; 86850; 86900; 86901; 87040-91; 87045; 87070; 87081; 87086; 87177; 89051; 92526; 92610; 93005; 93306; 93970; 94002; 94003; 94664; 94770; 96372; 96374; 96375; 97162; 97530; 99291-25

== ENCOUNTER 2019-01-13 15:48 | Emergency (ER) | payer SELFPAY, MEDICAID, MEDICARE | END 2019-01-13 21:03 | disposition left against medical advice (07) | LOC: E/R 15:48 | DX: Z53.21 Procedure and treatment not carried out due to patient leaving prior to being seen by health care provider (principal) ==